=== PATIENT | female | born 1985 | race Caucasian/White ===

== ENCOUNTER 2021-05-13 11:27 | Inpatient (IN) | payer OTHER, SELFPAY ==
--- NOTE | ~2021-05-13 | MR_ITS ---
MR BRAIN WITHOUT AND WITH CONTRAST CLINICAL INFORMATION: Reaction chills. COMPARISON: Head CT 07/19/2014. TECHNIQUE: Multiplanar, multisequence MRI of the brain was obtained before and after the intravenous administration of 10 mL of Gadavist. FINDINGS: There is no pathologic enhancement intracranially. There is no hydrocephalus, extra-axial surface collection, or herniation. The major flow voids at the skull base are preserved. There is no acute infarct on diffusion-weighted imaging. There is no intracranial hemorrhage on the gradient recalled echo acquisition. The midline structures are normal. The cerebellar tonsils are normally positioned. The cerebellum and brainstem are normal. The craniocervical junction is normal. Osseous marrow signal intensity is homogenous. The visualized soft tissues are unremarkable. MR/MR head/brain wo/w con IMPRESSION: Unremarkable MRI of the brain.
[2021-05-13 11:29] VITALS: BP 151/104; PULSE 83; RESP 19; TEMP 36.6; O2SAT 98; BMI 38.2
[2021-05-13 13:36] VITALS: BP 135/96; PULSE 79; RESP 17; TEMP 36.9; O2SAT 100
--- NOTE | 2021-05-13 14:17 | ED.GENADULT ---
HPI - General Adult General Chief complaint: General Medical Stated complaint: MS flare up Time Seen by Provider: 05/13/21 13:42 Source: patient Mode of arrival: ambulatory Limitations: no limitations History of Present Illness HPI narrative: 35-year-old female who presents emergency department for evaluation of possible MS flare up. Patient states she was diagnosed with multiple sclerosis in 2019, at that time she had optic neuritis and was treated with high dose Solu-Medrol x3 days. She states that over the past 4 days she believes she is having MS flare up. She states she is experiencing numbness in the right side of her face, right arm and right leg. She states that she also has pain in her right arm and right leg which is a constant, numbness/burning sensation which is 9/10 at its worst. She states that she has weakness of both the right arm and right leg with the right leg being more weak than her arm. She also states she has had a pressure-like headache behind her right eye which she states is constant and 5/10. She has some slight blurred vision the right eye as well. the patient denied fever, chills, rhinorrhea, sore throat, cough, chest pain, shortness of breath, nausea, vomiting, diarrhea. She states she has noted some urinary frequency but no dysuria. She states that she has had urinary frequency in the past with her flare-ups of her MS. Patient states that her neurologist is currently at [facility] in [place]. She has seen our neurologist Dr. Best in the past and she has also been treated at [facility] by a different neurologist. She does take Keppra for a seizure disorder and amitriptyline for insomnia. Related Data Allergies Allergy/AdvReac Type Severity Reaction Status Date / Time clams [CLAMS] Allergy Unknown UNKNOWN Unverified 12/12/19 17:01 gabapentin [GABAPENTIN] Allergy Unknown UNKNOWN Unverified 12/12/19 17:01 Review of Systems Review of Systems: Yes all other systems are reviewed and are negative [facility] Past Medical History [facility] Narrative: Social history: She denies tobacco, alcohol and drug use. Medical History (Updated 05/13/21 @ 17:57 by Jamey Vargas MD) Epilepsy Multiple sclerosis Social History Social History Alcohol intake: never Patient Tobacco Use Status: Never used Tobacco Use of substances other than those prescribed or required for medical reasons: No Advance Directives: No Advance Directives Information Provided: Yes Patient : No Physical Exam ED Vital Signs: Vital Signs - 24 hr 05/13/21 11:29 05/13/21 13:36 Temperature 98 F 98.4 F Pulse Rate 83 79 Respiratory Rate 19 17 Blood Pressure 151/104 H 135/96 H Pulse Oximetry 98 100 BMI result Body Mass Index 38.2 Const Other: Awake, alert, female patient, very pleasant and cooperative, does not appear to be in distress, answers all questions appropriately. Orientation/consciousness: oriented to person and oriented to place HENMT Head: Yes normal to inspection, Yes normocephalic and Yes atraumatic Ears: external ears normal General nose exam: Normal external nose present Face and sinus: Yes normal facial exam Mouth: Normal oral and palatal mucosa present Throat: Yes posterior oropharynx normal Eyes General: appearance normal, both eyes and all related structures Pupils: Equal, round and reactive pupils present Neck Neck: Yes normal visual inspection, Yes no lymphadenopathy, Yes trachea midline and Yes supple Chest Chest palpation & inspection: normal inspection of the chest and normal palpation of entire chest wall Resp Effort & Inspection: normal respiratory effort and able to speak in complete sentences Auscultation: clear to auscultation bilaterally Cardio Rate: regular rate Rhythm: regular rhythm Heart sounds: S1 normal heart sound present, S2 normal heart sound present and no murmurs GI Inspection: Yes normal to inspection Palpation (GI): Soft to palpation, nontender and no guarding Auscultation: normal bowel sounds General: Yes no CVA tenderness Back/Spine/Pelvis Back: no CVA tenderness Skin General skin exam: no rashes or lesions noted Neuro Other: Strength: Patient seems to have diminished strength in her right arm compared to her left arm and her right leg compared to her left leg with the right lower extremity being worse than the upper extremity. Patient has diminished light touch to her right face, right arm and right leg. General: oriented to person and oriented to place Cranial nerves: Yes CN's II-XII intact bilaterally and Yes Equal, round and reactive pupils present Cognition (Neuro): normal cognition Extrem General: Yes normal to inspection Psych Appearance: grossly normal Speech and movement: Normal speech and movement present Affect: normal affect Attitude: cooperative Thought process: Normal thought process present Thought content: Normal thought content present Course Course Course Narrative: 35-year-old female with history of MS and seizure disorder who presents emergency department for evaluation of 4 days right-sided headache, right upper and lower extremity pain and weakness and right facial, right upper extremity right lower extremity numbness. Vital signs revealed an elevated blood pressure 135/96 otherwise was unremarkable physical examination did reveal weakness of her right upper and right lower extremity with the right lower extremity being more weak than her upper extremity. She also has diminished light touch on the right side of her face, right arm and right leg. Impression is the patient most likely has a MS flare up. Complex migraine and stroke or also possible but I think less likely. I did order a CBC, CMP, CRP, ESR, urinalysis, MRI of the brain with and without contrast. I did discuss the patient's presentation with our software development coordinator Emily Santana . 1753: Laboratory evaluation: CBC was normal with a normal ESR of 13. CRP was slightly elevated at 1.06, glucose was elevated 120 otherwise labs were unremarkable. COVID-19 test was negative. MRI of the brain has been performed but results are pending. The patient was treated for possible MS flare up with Solu-Medrol 1000 mg IV. Her pain was treated with morphine 4 mg IV. I did discuss admission with our covering hospitalist, Dr. Almeida and the patient will be admitted for further treatment And diagnostic evaluation. Medical Decision Making Lab Data Result diagrams: 05/13/21 14:29 05/13/21 16:10 Labs: Lab Results 05/13/21 05/13/21 05/13/21 Range/Units 14:29 14:29 14:29 WBC 7.3 (4.8-10.8) X10*3/uL RBC 4.82 (4.20-5.50) X10*6/uL Hgb 13.6 (12.0-16.0) g/dl Hct 42.2 (37.0-47.0) % MCV 87.6 (80.0-98.0) fL MCH 28.2 (27.0-33.0) pg MCHC 32.2 (31.0-35.0) g/dl RDW 13.0 (11.0-16.0) % Plt Count 318 (160-400) X10*3/uL MPV 11.6 (9.4-12.3) fL Immature Gran % (Auto) 0.3 (0.0-0.4) % Neut % (Auto) 47.4 (45-73) % Lymph % (Auto) 42.8 H (20-40) % [place] % (Auto) 7.3 (2-11) % Eos % (Auto) 1.9 (0-4) % Baso % (Auto) 0.3 (0-2) % Lymph # (Auto) 3.1 (1.2-4.9) X10*3/uL [place] # (Auto) 0.5 (0.1-1.2) X10*3/uL Eos # (Auto) 0.1 (0.0-0.4) X10*3/uL Baso # (Auto) 0.0 (0.0-0.2) X10*3/uL Abs Immat Gran (auto) 0.02 (0.00-0.03) X10*3/uL Absolute Neuts (auto) 3.5 (2.0-8.3) x10*3/uL Absolute Nucleated RBC 0.000 (0.0-0.012) X10*3/uL Nucleated RBC % (auto) 0.0 (0.0-0.2) /100WBC ESR 13 (0-20) MM/HR Sodium (135-145) mmol/L Potassium (3.3-5.1) mmol/L Chloride (96-108) mmol/L Carbon Dioxide (22-29) mmol/L Anion Gap (12-20) BUN (9-16) mg/dL Creatinine (0.5-1.4) mg/dL Estim Creat Clear Calc Estimated GFR Random Glucose (60-115) mg/dL Calcium (8.4-10.2) mg/dL Total Bilirubin (0.0-1.0) mg/dL AST (5-31) U/L ALT (0-31) U/L Alkaline Phosphatase (39-117) U/L C-Reactive Protein (< or = 0.50) mg/dL Total Protein (6.5-8.0) g/dL Albumin (3.5-5.0) g/dL COVID-19 (DAGMAR) Negative (Negative) COVID-19 Clin Com See Note 05/13/21 Range/Units 16:10 WBC (4.8-10.8) X10*3/uL RBC (4.20-5.50) X10*6/uL Hgb (12.0-16.0) g/dl Hct (37.0-47.0) % MCV (80.0-98.0) fL MCH (27.0-33.0) pg MCHC (31.0-35.0) g/dl RDW (11.0-16.0) % Plt Count (160-400) X10*3/uL MPV (9.4-12.3) fL Immature Gran % (Auto) (0.0-0.4) % Neut % (Auto) (45-73) % Lymph % (Auto) (20-40) % [place] % (Auto) (2-11) % Eos % (Auto) (0-4) % Baso % (Auto) (0-2) % Lymph # (Auto) (1.2-4.9) X10*3/uL [place] # (Auto) (0.1-1.2) X10*3/uL Eos # (Auto) (0.0-0.4) X10*3/uL Baso # (Auto) (0.0-0.2) X10*3/uL Abs Immat Gran (auto) (0.00-0.03) X10*3/uL Absolute Neuts (auto) (2.0-8.3) x10*3/uL Absolute Nucleated RBC (0.0-0.012) X10*3/uL Nucleated RBC % (auto) (0.0-0.2) /100WBC ESR (0-20) MM/HR Sodium 140 (135-145) mmol/L Potassium 4.4 (3.3-5.1) mmol/L Chloride 106 (96-108) mmol/L Carbon Dioxide 29 (22-29) mmol/L Anion Gap 9 L (12-20) BUN 8 L (9-16) mg/dL Creatinine 0.75 (0.5-1.4) mg/dL Estim Creat Clear Calc 117.8 Estimated GFR > 60 Random Glucose 120 H (60-115) mg/dL Calcium 9.4 (8.4-10.2) mg/dL Total Bilirubin 0.3 (0.0-1.0) mg/dL AST 15 (5-31) U/L ALT 12 (0-31) U/L Alkaline Phosphatase 105 (39-117) U/L C-Reactive Protein 1.06 H (< or = 0.50) mg/dL Total Protein 7.5 (6.5-8.0) g/dL Albumin 4.3 (3.5-5.0) g/dL COVID-19 (DAGMAR) (Negative) COVID-19 Clin Com Discharge Plan Discharge Patient Disposition: Admitted As Inpatient
[2021-05-13 14:35] LABS: MANUAL DIFF FLAG NO
[2021-05-13 14:38] LABS: Basophils Percent Auto 0.3 % (0-2); Eosinophils Absolute Auto 0.1 X10*3/uL (0.0-0.4); Eosinophils Percent Auto 1.9 % (0-4); Hematocrit 42.2 % (37.0-47.0); Hemoglobin 13.6 g/dl (12.0-16.0); Imm Gran Abs Auto 0.02 X10*3/uL (0.00-0.03); Imm Gran Pct Auto 0.3 % (0.0-0.4); Lymphocytes Absolute Auto 3.1 X10*3/uL (1.2-4.9); Lymphocytes Percent Auto 42.8 % (20-40); Mean Corpuscular HGB Conc 32.2 g/dl (31.0-35.0); Mean Corpuscular Hemoglobin 28.2 pg (27.0-33.0); Mean Corpuscular Volume 87.6 fL (80.0-98.0); Mean Platelet Volume 11.6 fL (9.4-12.3); Monocytes Absolute Auto 0.5 X10*3/uL (0.1-1.2); Monocytes Percent Auto 7.3 % (2-11); Neutrophils Absolute Auto 3.5 x10*3/uL (2.0-8.3); Neutrophils Percent Auto 47.4 % (45-73); Platelet Count 318 X10*3/uL (160-400); Red Blood Count 4.82 X10*6/uL (4.20-5.50); White Blood Count 7.3 X10*3/uL (4.8-10.8)
[2021-05-13] MEDS: ondansetron HCL 4 MG/2 ML VIAL IVPUSH (14:39)
[2021-05-13] MEDS: Morphine Sulfate 4 MG/ML CARTRIDGE IVPUSH ×2 (14:39→18:55)
[2021-05-13 14:52] LABS: COVID-19 Test Negative (Negative)
[2021-05-13 15:23] LABS: Erythrocyte Sedimentation Rate 13 MM/HR (0-20)
[2021-05-13 16:37] LABS: Alanine Aminotransferase 12 U/L (0-31); Albumin Level 4.3 g/dL (3.5-5.0); Alkaline Phosphatase 105 U/L (39-117); Anion Gap 9 (12-20); Aspartate Amino Transferase 15 U/L (5-31); Bilirubin Total 0.3 mg/dL (0.0-1.0); Blood Urea Nitrogen 8 mg/dL (9-16); C Reactive Protein 1.06 mg/dL (< or = 0.50); Calcium 9.4 mg/dL (8.4-10.2); Carbon Dioxide 29 mmol/L (22-29); Chloride 106 mmol/L (96-108); Creatinine Clr Calc Pharmacy 117.8; Estimated Glomerular Filt Rate > 60; Glucose Random 120 mg/dL (60-115); Potassium 4.4 mmol/L (3.3-5.1); Sodium 140 mmol/L (135-145); Total Protein 7.5 g/dL (6.5-8.0)
--- NOTE | 2021-05-13 17:27 | P.HPHOSP_ITS ---
History of Present Illness Date of Service: 05/13/21 Chief Complaint: numbness, headache, weakness..MS flare 35-year-old female with history of epilepsy, MS diagnosed in 2019, at that time she had optic neuritis and was treated high dose steroid..? She believes over the past 4 days, she is experiencing MS flare up with characteristic symptoms of numbness in the right side of her face, right arm and right leg. Additionally, she also has constant, burning 9/10 pain in her right arm and right leg that is a constant. She has weakness of both the right arm and right leg with the right leg greater than the arm.? She also states she has had a pressure-like headache behind her right eye which she states is constant and 5/10.? She has some slight blurred vision the right eye as well. the patient denied fever, chills, rhinorrhea, sore throat, cough, chest pain, shortness of breath, nausea, vomiting, diarrhea.? She states she has noted some urinary frequency but no dysuria. ? She states that she has had urinary frequency in the past with her flare-ups of her MS. Patient states that her neurologist is currently at [facility] in [place].? She has seen our neurologist Dr. Best in the past and she has also been treated at [facility] by a different neurologist.? She takes Keppra for seizure disorder? and amitriptyline for insomnia. She has been treated with 1 gram of IV solumedrol, labs are normal normal, MRI is requested.. Covid test is negative. Review of Systems Review of Systems: Gen: no fever Resp: no sob, no cough CV: no chest, no HARRIS, no leg edema GI: No n/v, no abd pain Neuro: numness and weakness in the limbs, headache, blur vision Yes all other systems are reviewed and are negative ON LICENSE OF [facility] Medical History (Updated 05/13/21 @ 17:57 by Jamey Vargas MD) Epilepsy Multiple sclerosis Pertinent family history: There is no family history of MS Social History Alcohol intake: never Patient Tobacco Use Status: Never used Tobacco Use of substances other than those prescribed or required for medical reasons: No Advance Directives: No Advance Directives Information Provided: Yes Patient : No Meds Allergies Allergy/AdvReac Type Severity Reaction Status Date / Time clams [CLAMS] Allergy Unknown UNKNOWN Verified 05/13/21 22:27 gabapentin [GABAPENTIN] Allergy Unknown UNKNOWN Verified 05/13/21 22:27 Home Medications Medication Instructions Recorded Confirmed Last Taken Type albuterol sulfate 90 mcg/actuation 2 puff PO Q6H 05/13/21 05/13/21 Unknown History aerosol inhaler (Ventolin HFA) amitriptyline 10 mg tablet 10 mg PO BEDTIME 05/13/21 05/13/21 05/12/21 History xatdvgtldk-qwonqvonhkltf-[id number] 1 tab PO NEEDED 05/13/21 05/13/21 Unknown History 50 mg-325 mg-40 mg tablet ibuprofen 800 mg tablet 1 tab PO TID PRN 05/13/21 05/13/21 Unknown History levetiracetam 500 mg 2 tab PO BEDTIME 05/13/21 05/13/21 05/12/21 History tablet,extended release 24 hr naratriptan 2.5 mg tablet 2.5 mg PO ONCE PRN 05/13/21 05/13/21 Unknown History Physical Exam Vital Signs and Narrative: Vital Signs: Last Vital Signs Temp 98.4 F 05/13/21 13:36 Pulse 79 05/13/21 13:36 Resp 17 05/13/21 13:36 BP 135/96 H 05/13/21 13:36 Pulse Ox 100 05/13/21 13:36 BMI result Body Mass Index 38.2 Const: Other: Constitutional: Alert, in no distress, overweight. Mental Status: Oriented to person, place and time. Eyes: Pupils are equal, round and reactive to light. Ear, Nose and Throat: Oropharynx clear, mucous membranes moist. Ears and nose without eformities. Trachea midline. Respiratory: Clear to auscultation. No wheezing, rales or rhonchi. Cardiovascular: S1 S2 regular. No murmurs, rubs or gallops. Gastrointestinal: Abdomen soft, non-tender, non-distended. Normal bowel sounds.? Neurologic: Cranial nerves II-XII grossly intact. No focal neurological deficits. Moves all extremities spontaneously.? Skin: No rashes or lesions.? Musculoskeletal: No cyanosis or clubbing. Psychiatric: Normal mood and affect? Results Labs CBC and Chem 7: 05/13/21 14:29 05/13/21 16:10 Labs: \ Assessment and Plan (1) Exacerbation of multiple sclerosis: Status: Acute (2) Multiple sclerosis: Status: Acute Plan 35 year old female with history of epilepsy, Mutiple sclerosis (MS) here flare o f MS 1/MS flare--Hydrate, IV Solumedrol 1 gram daily x 3 days-, Neuro consult, follow up on MRI, Dilaudid for pain 2/ Seizure desorder--continue Keppra 3/Insomnia--Elavil and Melatonin 4/DVT prophylaxi--Lovenox Quality Stroke Does the patient have a stroke diagnosis?: No VTE Prior VTE?: No VTE Risk Level:: Medical - moderate - high VTE Device Contraindication: Treatment Not Indicated VTE Drug Contraindication: Treatment Not Indicated
--- NOTE | 2021-05-13 18:46 | PHA.MEDREC ---
Pharmacy Consult ? Medication Reconciliation Pharmacy has completed the medication reconciliation. Maddie WillisD
[2021-05-13] MEDS: Enoxaparin Sodium 40 MG/0.4 ML SYRINGE SUBCUT (18:55)
[2021-05-13] MEDS: Dextrose 5 % and 0.45 % NaCl 1,000 ML 100 ML IVCONT (18:56)
[2021-05-13 19:15] VITALS: BP 144/88; PULSE 86; RESP 16; O2SAT 98
[2021-05-13] MEDS: methylPREDNISolone Sod Succ 1,000 MG in 0.9 % Sodium Chloride 50 ML 66 MG IV (19:26)
[2021-05-13 19:35] LABS: Appearance Urine CLEAR; Color Urine YELLOW; Glucose Urine UA NEG (NEG); Leukocyte Esterase Urine 1+ (NEG); Nitrite Urine NEG (NEG); Specific Gravity - Urine 1.015 (1.005-1.025); UACC Culture Trigger YES; Urine Blood 1+ (NEG); Urine Ketones NEG (NEG); Urine Protein NEG (NEG-TRACE)
[2021-05-13 19:39] LABS: UPreg QC Valid YES; Urine Pregnancy NEGATIVE (NEGATIVE)
[2021-05-13 19:52] LABS: Squamous Epithelial Cell Urine 2+ /LPF
[2021-05-13 19:53] LABS: Bacteria Urine TRACE /LPF
--- NOTE | 2021-05-13 21:17 | PC.NURSE ---
Assumed care of pt from main ED. Pt ambulatory from stretcher to hospital bed, given towels and shower supplies per request. Awaiting inpatient bed assignment
[2021-05-13 21:28] VITALS: BP 127/73; PULSE 77; RESP 18; O2SAT 96
[2021-05-13] MEDS: Amitriptyline HCl 10 MG TABLET PO (22:28)
[2021-05-13] MEDS: Albuterol Sulfate 90 MCG 8 GM INHALER 2 PUFF INHALE (22:41)
[2021-05-14] MEDS: Dextrose 5 % and 0.45 % NaCl 1,000 ML 100 ML IVCONT (06:26)
[2021-05-14 06:28] VITALS: BP 132/63; PULSE 77; RESP 17; O2SAT 94
[2021-05-14] MEDS: Butalb/Acetamin/Caff 50/325/40 TABLET 1 TAB PO (07:52)
[2021-05-14 08:14] VITALS: BP 118/70; PULSE 103; RESP 16; O2SAT 96
--- NOTE | 2021-05-14 08:14 | P.PNIM_ITS ---
Subjective Subjective Date of Service: 05/16/21 Interval History: Seen in f/u for? MS flare Review of Systems Gen: no fever Resp: no sob, no cough CV: no chest, no HARRIS, no leg edema GI: No n/v, no abd pain Neuro: numness and weakness in the limbs, headache, blur vision Physical Exam Vital Signs: Vital Signs: Last Vital Signs Temp 98.4 F 05/13/21 13:36 Pulse 103 H 05/14/21 08:14 Resp 16 05/14/21 08:14 BP 118/70 05/14/21 08:14 Pulse Ox 96 05/14/21 08:14 BMI result Body Mass Index 38.2 Const: Other: General: AO X 3, no acute distress Resp: CTA bilateral CVS: S1,S2,RRR GI: +BS, NT, no distention Skin: No rash Neuro: motor grossly intact Psych: appropriate affect Objective Data Active Medications Acetaminophen/Butalbital/Caffeine (Butalb/Acetamin/Caff 50/325/40 Tablet) 1 tab PO DAILY PRN PRN Reason: Headache Last Admin: 05/14/21 07:52 Dose: 1 tab Documented by: GREGORIA Albuterol Sulfate (Albuterol Sulfate 90 Mcg 8 Gm Inhaler) 2 puff INHALE Q6H COUNT INCLUDES THE [facility] Last Admin: 05/14/21 03:34 Dose: Not Given Documented by: JENNIFER Non-Admin Reason: Patient Asleep Amitriptyline HCl (Amitriptyline Hcl 10 Mg Tablet) 10 mg PO BEDTIME COUNT INCLUDES THE [facility] Last Admin: 05/13/21 22:28 Dose: 10 mg Documented by: JENNIFER Enoxaparin Sodium (Enoxaparin Sodium 40 Mg/0.4 Ml Syringe) 40 mg SUBCUT Q24H COUNT INCLUDES THE [facility] Last Admin: 05/13/21 18:55 Dose: 40 mg Documented by: COOPEYari Hydromorphone HCl (Hydromorphone Hcl 1 Mg/Ml Syringe) 0.5 mg IVPUSH Q4H PRN; Protocol PRN Reason: Pain, Severe (Pain Scale 7-10) Dextrose/Sodium Chloride (D51/2ns) 1,000 mls @ 100 mls/hr IVCONT .Q10H COUNT INCLUDES THE [facility] Last Admin: 05/14/21 06:26 Dose: 100 mls/hr Documented by: JENNIFER Ibuprofen (Ibuprofen 800 Mg Tablet) 800 mg PO TID PRN PRN Reason: Headache Melatonin (Melatonin 3 Mg Tablet) 6 mg PO BEDTIME PRN PRN Reason: Insomnia Pt Own: Levetiracetam Er 500mg Tab 2 each PO BEDTIME COUNT INCLUDES THE [facility] Last Admin: 05/13/21 22:28 Dose: 2 each Documented by: JENNIFER Sodium Chloride (0.9 % Sodium Chloride Flush 3 Ml Syringe) 3 ml IVFLUSH QSHIFT COUNT INCLUDES THE [facility] Last Admin: 05/14/21 00:06 Dose: Not Given Documented by: JENNIFER Non-Admin Reason: Med Not Available Labs CBC & Chem 7: 05/13/21 14:29 05/13/21 16:10 Labs: Laboratory Results - last 24 hr 05/13/21 05/13/21 05/13/21 14:29 14:29 14:29 MCV 87.6 MCH 28.2 MCHC 32.2 RDW 13.0 Plt Count 318 MPV 11.6 Immature Gran % (Auto) 0.3 Neut % (Auto) 47.4 Lymph % (Auto) 42.8 H [place] % (Auto) 7.3 Eos % (Auto) 1.9 Baso % (Auto) 0.3 Lymph # (Auto) 3.1 [place] # (Auto) 0.5 Eos # (Auto) 0.1 Baso # (Auto) 0.0 Abs Immat Gran (auto) 0.02 Absolute Neuts (auto) 3.5 Absolute Nucleated RBC 0.000 Nucleated RBC % (auto) 0.0 ESR 13 Anion Gap Estim Creat Clear Calc Estimated GFR Random Glucose Calcium Total Bilirubin AST ALT Alkaline Phosphatase C-Reactive Protein Total Protein Albumin Urine Color Urine Appearance Urine pH Ur Specific [place] Urine Protein Urine Glucose (UA) Urine Ketones Urine Blood Urine Nitrite Ur Leukocyte Esterase Urine RBC Urine WBC Ur Squamous Epith Cells Urine Bacteria Urine Test COVID-19 (DAGMAR) Negative COVID-19 Clin Com See Note 05/13/21 05/13/21 05/13/21 16:10 19:21 19:21 MCV MCH MCHC RDW Plt Count MPV Immature Gran % (Auto) Neut % (Auto) Lymph % (Auto) [place] % (Auto) Eos % (Auto) Baso % (Auto) Lymph # (Auto) [place] # (Auto) Eos # (Auto) Baso # (Auto) Abs Immat Gran (auto) Absolute Neuts (auto) Absolute Nucleated RBC Nucleated RBC % (auto) ESR Anion Gap 9 L Estim Creat Clear Calc 117.8 Estimated GFR > 60 Random Glucose 120 H Calcium 9.4 Total Bilirubin 0.3 AST 15 ALT 12 Alkaline Phosphatase 105 C-Reactive Protein 1.06 H Total Protein 7.5 Albumin 4.3 Urine Color YELLOW Urine Appearance CLEAR Urine pH 6.0 Ur Specific [place] 1.015 Urine Protein NEG Urine Glucose (UA) NEG Urine Ketones NEG Urine Blood 1+ H Urine Nitrite NEG Ur Leukocyte Esterase 1+ H Urine RBC 1-4 Urine WBC 5-9 H Ur Squamous Epith Cells 2+ Urine Bacteria TRACE Urine Test NEGATIVE COVID-19 (DAGMAR) COVID-19 Clin Com Assessment and Plan (1) Total body pain: Status: Acute Plan 35 year old female with history of epilepsy, Mutiple sclerosis (MS) here flare of MS 1/?MS flare, MRI unremarkable--Hydrate, IV Solumedrol 1 gram yesterday, Neuro doesn't think this MS. request MRI of thoracic and C/spine 2/ Seizure desorder--continue Keppra 3/Insomnia--Elavil and Melatonin 4/DVT prophylaxi--Lovenox Quality Stroke Does the patient have a stroke diagnosis?: No VTE Prior VTE?: No VTE Risk Level:: Medical - moderate - high VTE Device Contraindication: Treatment Not Indicated VTE Drug Contraindication: Treatment Not Indicated
--- NOTE | 2021-05-14 09:36 | PC.NURSE ---
Pt A&Ox3, LCA, pain 10/10 upon initial assessment, Fioricet given for headache. Pt ambulates independently, states R sided pain remains but has improved since yesterday. Pt questioning POC, aware of need for IV solumedrol x 3 days and states it did help in the past, but hoping she can go home and get VNA services for remaining dose. Awaiting bed assignment. Call [facility] within reach. Will continue to monitor.
--- NOTE | 2021-05-14 11:53 | PM.NEUROCN ---
History of Present Illness Data of Consult Service Date: 05/14/21 Primary Care Provider: Chris Meng MD [facility] Reason for consult: Pain 35 years old woman who I have seen in the past an last visit with me was in 2019. She initially came to see me for seizure disorder. She reported that she was suffering from seizure disorder since she was 3 years old. Her seizures included an aura of a metallic taste and then losing consciousness. She was told that she would shake all over during unconsciousness. She was treated with levetiracetam and she had tried some other medicines before that for seizure disorder. In recent years, she was complaining of body pain and was investigated for multiple sclerosis. She had complained of pain in and around right eye with suspicion of optic neuritis. She had couple of MRI of brain in [facility] and the last 1 to my knowledge was in 2019. None of these scans revealed any lesions suggestive of multiple sclerosis. For last few years she has been seeing a neurologist in [place] and according to her multiple other imaging and investigations were done but final diagnosis was still not clear. She had seen her neurologist few weeks ago. She was admitted hospital yesterday with kind of complaints that she had for number of years. She was complaining of pain all over her body and more so on right side a heavy feeling in her legs and not able to walk right eye pain and headache, which according to her was better after taking Fioricet. In the past she had been given Solu-Medrol treatment for tentative diagnosis of MS. Review of Systems Review of Systems: As described in HPI. No loss of bowel bladder control or cold or flu-like illness PMFSH Past Medical History Medical History (Updated 05/14/21 @ 12:00 by Miguel Ángel Best MD) Epilepsy Multiple sclerosis Social History Social History Alcohol intake: never Patient Tobacco Use Status: Never used Tobacco Use of substances other than those prescribed or required for medical reasons: No Advance Directives: No Advance Directives Information Provided: Yes Patient : No Meds Allergies Allergy/AdvReac Type Severity Reaction Status Date / Time clams [CLAMS] Allergy Unknown UNKNOWN Verified 05/13/21 22:27 gabapentin [GABAPENTIN] Allergy Unknown UNKNOWN Verified 05/13/21 22:27 Active Medications: Current Medications Acetaminophen/Butalbital/Caffeine (Butalb/Acetamin/Caff 50/325/40 Tablet) 1 tab PO DAILY PRN PRN Reason: Headache Last Admin: 05/14/21 07:52 Dose: 1 tab Documented by: Albuterol Sulfate (Albuterol Sulfate 90 Mcg 8 Gm Inhaler) 2 puff INHALE Q6H [facility] Last Admin: 05/14/21 09:30 Dose: Not Given Documented by: Amitriptyline HCl (Amitriptyline Hcl 10 Mg Tablet) 10 mg PO BEDTIME [facility] Last Admin: 05/13/21 22:28 Dose: 10 mg Documented by: Enoxaparin Sodium (Enoxaparin Sodium 40 Mg/0.4 Ml Syringe) 40 mg SUBCUT Q24H [facility] Last Admin: 05/13/21 18:55 Dose: 40 mg Documented by: Hydromorphone HCl (Hydromorphone Hcl 1 Mg/Ml Syringe) 0.5 mg IVPUSH Q4H PRN; Protocol PRN Reason: Pain, Severe (Pain Scale 7-10) Dextrose/Sodium Chloride (D51/2ns) 1,000 mls @ 100 mls/hr IVCONT .Q10H [facility] Last Admin: 05/14/21 06:26 Dose: 100 mls/hr Documented by: Ibuprofen (Ibuprofen 800 Mg Tablet) 800 mg PO TID PRN PRN Reason: Headache Melatonin (Melatonin 3 Mg Tablet) 6 mg PO BEDTIME PRN PRN Reason: Insomnia Pt Own: Levetiracetam Er 500mg Tab 2 each PO BEDTIME [facility] Last Admin: 05/13/21 22:28 Dose: 2 each Documented by: Sodium Chloride (0.9 % Sodium Chloride Flush 3 Ml Syringe) 3 ml IVFLUSH QSHIFT [facility] Last Admin: 05/14/21 09:02 Dose: Not Given Documented by: Home Medications Medication Instructions Recorded Confirmed Last Taken Type albuterol sulfate 90 mcg/actuation 2 puff PO Q6H 05/13/21 05/13/21 Unknown History aerosol inhaler (Ventolin HFA) amitriptyline 10 mg tablet 10 mg PO BEDTIME 05/13/21 05/13/21 05/12/21 History bifbkckxog-emacnldevvasd-ihcabnvb 1 tab PO NEEDED 05/13/21 05/13/21 Unknown History 50 mg-325 mg-40 mg tablet ibuprofen 800 mg tablet 1 tab PO TID PRN 05/13/21 05/13/21 Unknown History levetiracetam 500 mg 2 tab PO BEDTIME 05/13/21 05/13/21 05/12/21 History tablet,extended release 24 hr naratriptan 2.5 mg tablet 2.5 mg PO ONCE PRN 05/13/21 05/13/21 Unknown History Physical Exam Vital Signs: Vital Signs: Last Vital Signs Temp 98.4 F 05/13/21 13:36 Pulse 103 H 05/14/21 08:14 Resp 16 05/14/21 08:14 BP 118/70 05/14/21 08:14 Pulse Ox 96 05/14/21 08:14 BMI result Body Mass Index 38.2 Neuro: Other: She was alert and awake with normal spontaneity of speech fluency comprehension and affect. Face was symmetrical. Visual graves are full. Extraocular muscles were intact. There was no obvious focal weakness toe strength examination is difficult to interpret. Deep tendon reflexes were trace to 1+ with flexor plantars. Speech was normal. Results Labs CBC & Chem 7: 05/13/21 14:29 05/13/21 16:10 Labs: Short CBC 05/13/21 Range/Units 14:29 WBC 7.3 (4.8-10.8) X10*3/uL Hgb 13.6 (12.0-16.0) g/dl Hct 42.2 (37.0-47.0) % Plt Count 318 (160-400) X10*3/uL BMP 05/13/21 16:10 Sodium 140 Potassium 4.4 Chloride 106 Carbon Dioxide 29 BUN 8 L Creatinine 0.75 Calcium 9.4 Liver Function 05/13/21 Range/Units 16:10 Total Bilirubin 0.3 (0.0-1.0) mg/dL AST 15 (5-31) U/L ALT 12 (0-31) U/L Alkaline Phosphatase 105 (39-117) U/L Albumin 4.3 (3.5-5.0) g/dL Urine 05/13/21 Range/Units 19:21 Urine Color YELLOW Urine Appearance CLEAR Urine pH 6.0 (5.0-8.0) Ur Specific [place] 1.015 (1.005-1.025) Urine Protein NEG (NEG-TRACE) MG/DL Urine Glucose (UA) NEG (NEG) MG/DL MRI of brain with and without contrast did not reveal any significant abnormality Assessment and Plan (1) Epilepsy: Status: Acute 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 I would recommend continuing the dose. Her present presentation was not suggestive of seizure (2) Total body pain: Status: Acute Though multiple sclerosis has been reported in her medical record, they never has been confirmation of this diagnosis. She had multiple brain MRIs including this 1 not revealing any significant lesion or abnormality. Her examination is nonfocal and symptoms are nonspecific in nature. Differential diagnosis would include an unrelated systemic conditions such as rheumatological condition but also psychological condition with possibility of psychosomatic disorder. Because of her main complaints primarily of pain in her legs or heavy feeling in the legs and normal brain MRI, I recommend obtaining a cervical and thoracic spine MRI to rule out any possibility of demyelinating disease in the spinal cord. I recommend outpatient As far as pain management is concerned, non habit-forming medicines are recommended. Headaches are of migraine type and can be treated with p.r.n. Triptan. If her spine MRIs also normal, we should consider rheumatological and psychiatric consultations Procedures Date of Service Date of Service: 05/14/21
--- NOTE | 2021-05-14 13:06 | PC.NURSE ---
Pt asking if fluids could be stopped since she has good PO intake and feels as though it is making her urinate too often. Texted MD for orders to DC fluids. Otherwise pt offers no complaints, ANDERSON remains but has improved. Call [facility] within reach. Will continue to monitor.
--- NOTE | 2021-05-14 14:44 | MHC.CM.PN ---
Met with patient in regards to discharge planning. Patient lives alone in an apartment. Her best friend lives on the 1st floor. Patient ambulates independently and had no services prior to coming to the hospital. PCP verified. HCP completed, signed and witnessed. Original given to patient. Copy placed in chart. IMM explained and signed. Patient has not received any Covid vaccine. Chair van will be needed for transport when medically stable. Continue to monitor for d/c needs
[2021-05-14] MEDS: 0.9 % Sodium Chloride Flush 3 ML SYRINGE IVFLUSH (16:02)
[2021-05-14] MEDS: HYDROmorphone HCl 1 MG/ML SYRINGE 0.5 MG IVPUSH (16:02)
[2021-05-14] MEDS: Ibuprofen 800 MG TABLET PO (16:02)
--- NOTE | 2021-05-14 18:57 | P.EN_ITS ---
Event Note Date of Service: 05/14/21 Event Note: Covering for Dr Gross Pt wishes to sign out AMA, stating she wants to go to [place] to seek care, as her neurologist is there. Explained risks of leaving hospital and pending MRI of C- and T-spine to look for demyelinating lesions. Pt understands risks and still wishes to leave AMA.
--- NOTE | 2021-05-14 19:01 | P.DS_ITS ---
DS: Providers Provider Date of Service: 05/14/21 Date of admission: 05/13/21 17:36 Primary care physician: Chris Meng MD Consults: 05/13/21 17:35 Consult to Neurology Routine Consulting Provider: [facility] Reason for consultation: MS flare Has provider been notified: No DS: Diagnosis Discharge Diagnosis (1) Total body pain: Status: Acute DS: Summary Hospital Course Hospital Course: Patient was admitted for diffuse body ache and said it was MS flare and was given IV solumedrol in ED. When seen by Neurologist and MRI of head unremarkable Dr. Best who knows and follow her on outpatien basis doesn't think think it is MS and doesn't need IV high dose steroid and rather recommended further testing with C.spine and thoracic spine MRI but she left AMA because of no plan to give her more steroid. NO DIAGNOSIS OF MS Final Diagnosis: Diffuse body ache likely due to Fibromyalgia. Time Spent with Patient Time attestation: Total time spent providing and/or coordinating discharge services: Discharge coordination time: Greater than 30 minutes Quality: Stroke Does the patient have a stroke diagnosis?: No Physical Exam Vital Signs: Vital Signs: Last Vital Signs Temp 98.4 F 05/13/21 13:36 Pulse 103 H 05/14/21 08:14 Resp 16 05/14/21 08:14 BP 118/70 05/14/21 08:14 Pulse Ox 96 05/14/21 08:14 BMI result Body Mass Index 38.2 Discharge Plan Discharge Patient Disposition: Left Against Medical Advice Discharge Diagnosis: BODY ACHE Referrals: Chris Meng MD [Primary Care Provider] - 1 Week Discharge Medications: No Action ibuprofen 800 mg tablet 1 tab PO TID PRN (Reason: Headache) 0RF pbxltziitz-sccjpeofaqwej-pynf 50-325-40 mg tablet 1 tab PO NEEDED 0RF amitriptyline 10 mg tablet 10 mg PO BEDTIME 0RF albuterol sulfate [Ventolin HFA] 90 mcg/actuation HFA aerosol inhaler 2 puff PO Q6H 0RF naratriptan 2.5 mg tablet 2.5 mg PO ONCE PRN (Reason: Migraine Headache) 0RF levetiracetam 500 mg tablet extended release 24 hr 2 tab PO BEDTIME 0RF Discharge Orders: Discharge Order (Routine); Ordered 05/16/21 [facility] Care Plan Goals: LEFT AMA Health Concerns: LEFT AMA Plan of Treatment: LEFT AMA Assessment: LEFT AMA Discharge Date/Time: 05/14/21 19:20
--- NOTE | 2021-05-14 19:24 | PC.NURSE ---
Pt requesting to leave MD Renato SHI made aware.
--- NOTE | 2021-05-14 19:28 | PC.NURSE ---
Assumed care of pt at 1900. Pt in process of leaving AMA per previous RN. Avtar at bedside to discuss risks/ benefits w/ pt. PIVs removed. MRI notified pt will no longer be getting scan as ordered. Visit summary and imaging reports printed and given to pt per request. Pt educated on return precautions and made aware that leaving AMA does not preclude her from returning for care if needed. Home medication returned to pt. Pt ambulatory w/ steady gait out of dept, in NAD at time of dc, in possession of all belongings. weatherization installer also aware of pt leaving AMA
== END 2021-05-14 19:20 | disposition left against medical advice (07) | DRG 948 ==
LOC: HO.ED 17:57 → HO.EDOVER 18:17 → HO.S3 05-14 17:42
PROVIDERS: Admitting Provider Internal Medicine; Emergency Provider Emergency Medicine Emergency Medical Services; PCP Internal Medicine; Visit Provider Internal Medicine
DX: R52 Pain, unspecified (principal); R20.0 Anesthesia of skin; G47.00 Insomnia, unspecified; G40.909 Epilepsy, unspecified, not intractable, without status epilepticus; Z20.822 Contact with and (suspected) exposure to COVID-19; Z79.1 Long term (current) use of non-steroidal anti-inflammatories (NSAID); Z79.899 Other long term (current) drug therapy
CPT/HCPCS: 36415; 70553; 80053; 81001; 81025; 85025; 85652; 86140; 87086; 87635; 96365; 96375; 96376; 99284; 99285; A9585; J1170; J1650; J2270; J2405; J2930